=== PATIENT | male | born 1980 | race Caucasian/White ===

== ENCOUNTER 2018-09-20 17:45 | Emergency (ER) | payer SELFPAY ==
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
--- NOTE | 2018-09-20 18:10 | NUR ---
PATIENT SITTING UP ON BED. PATIENT AWAKE AND ALERT. PATIENT VERBALLY RESPONSIVE AT TIMES, BUT IS A POOR HISTORIAN. PATIENT ANSWERS UNAPPROPRIATELY WHEN ASKED QUESTIONS. PATIENT APPEARS TO BE VERY AGGRESSIVE AND CUSSING AT NURSES AND [facility] DEPUTIES. PER [facility] DEPUTIES, PATIENT BROUGHT IN FOR BILATERAL FOOT PAIN AND INTOXICATION OF UNKNOWN SUBSTANCE. BILATERAL FEET NOTED WITH NO REDNESS, SWELLING, BRUISING, OR DEFORMITIES. REST AND RELAXATION ENCOURAGED. MD ORDERS NOTED AND TO BE CARRIED OUT. Addendum: 09/20/18 at 1928 by SDEDOJ PATIENT IN HANDCUFFS.
--- NOTE | 2018-09-20 18:10 | NUR ---
Placed in room 6. Placed on proctologist and pulse oximeter. PATIENT UNCOOPERATIVE AND UNABLE TO GET A BLOOD PRESSURE AT THIS TIME. PT'S HEART RATE = 117BPM AND O2 SATURATION = 96% [facility] AT BEDSIDE.
--- NOTE | 2018-09-20 18:12 | NUR ---
ER Dr. FRAUSTO at bedside examining patient.
[2018-09-20] MEDS ORDERED: NACL 0.9% 1,000 ML IV ONE (18:15)
[2018-09-20] MEDS ORDERED: HALOPERIDOL LACTATE 5 MG/ML VIAL IM ONE (18:15)
[2018-09-20] MEDS ORDERED: LORazepam 2 MG/ML VIAL (FOR ER USE) IM ONE (18:15)
--- NOTE | 2018-09-20 18:15 | NUR ---
PT SCREAMING LOUDLY AND CUSSING, PT HAS SPIT MASK ON FROM FINISH MACHINE TENDER. PT UNCOOPERATIVE WITH PT CARE. MANY FINISH MACHINE TENDER AT BEDSIDE.
[2018-09-20 18:30] LABS: BASOPHILS # (AUTO) 0.1 K/uL (0.0-0.2); BASOPHILS % (AUTO) 0.7 % (0.0-2.0); EOSINOPHILS # (AUTO) 0.6 K/uL (0.0-0.4); HEMATOCRIT 48.7 % (36-54); HEMOGLOBIN 16.2 g/dL (14.0-18.0); LYMPHOCYTES # (AUTO) 3.4 K/uL (1.0-5.5); LYMPHOCYTES % (AUTO) 29.5 % (20.5-51.5); MEAN CORPUSCULAR HEMOGLOBIN 31 pg (27-31); MEAN CORPUSCULAR HGB CONC 33 % (32-36); MEAN CORPUSCULAR VOLUME 92 fL (79.0-98.0); MONOCYTES # (AUTO) 0.9 K/uL (0.0-1.0); MONOCYTES % (AUTO) 7.7 % (1.7-9.3); NEUTROPHILS # (AUTO) 6.6 K/uL (1.8-7.7); NEUTROPHILS % (AUTO) 57.1 % (40.0-70.0); PLATELET COUNT (AUTO) 287 K/uL (130-430); RED CELL DISTRIBUTION WIDTH 13.3 % (9.0-15.0); WHITE BLOOD COUNT (AUTO) 11.7 K/uL (4.8-10.8)
[2018-09-20] MEDS ORDERED: DIPHENHYDRAMINE INJ 50 MG/ML VIAL IM ONE (18:30)
--- NOTE | 2018-09-20 18:40 | NUR ---
ATIVAN, HALDOL, AND BENADRYL ADMINISTERED PER MD ORDERS. TOLERATED WELL. PLEASE SEE EMAR FOR DETAILS.
--- NOTE | 2018-09-20 18:50 | NUR ---
UNABLE TO CARRY OUT ECG DUE PT UNCOOPERATIVE AT THIS TIME. DR. FRAUSTO MADE AWARE.
[2018-09-20 18:52] LABS: CALCIUM 8.8 mg/dL (8.4-11.0); CREATININE 1.21 mg/dL (0.55-1.30); POTASSIUM 3.9 mmol/L (3.5-5.1)
[2018-09-20 18:56] LABS: ALBUMIN 3.8 g/dL (3.4-4.8); TOTAL BILIRUBIN 0.5 mg/dL (0.0-1.0)
--- NOTE | 2018-09-20 19:00 | NUR ---
ATTEMPTED TO INSERT PERIPHERAL IV ACCCESS. UNSUCCESSFUL DUE TO PATIENT BEING UNCOOPERATIVE. [facility] DEPUTIES x2 AT BEDSIDE.
--- NOTE | 2018-09-20 19:05 | NUR ---
REPORT GIVEN AND CARE TRANSFERRE TO HOPE ADHIKARI.
--- NOTE | 2018-09-20 20:10 | NUR ---
Pt is resting in wheelchair sedative medication has taken effect. Pt is no longer screaming or resisting treatment at this time. Will continue to monitor
--- NOTE | 2018-09-20 21:09 | NUR ---
Patient given written and verbal discharge instructions and verbalizes understanding. ER MD discussed with patient the results and treatment provided. Patient in stable condition. ID arm band removed. Patient educated on pain management and to follow up with PMD. Pain Scale 0/10. Opportunity for questions provided and answered. Medication side effect fact sheet provided.
--- NOTE | 2018-09-20 21:14 | NUR ---
Pt has been discharged KENJI informed me they will waiting for a inventory control supervisor for transport [facility]
[2018-09-20 21:38] VITALS: BP_SYST 158
== END 2018-09-20 21:14 | disposition home or self-care (01) ==
LOC: SED 17:45
DX: R41.82 Altered mental status, unspecified (principal); F10.129 Alcohol abuse with intoxication, unspecified; M79.671 Pain in right foot; M79.672 Pain in left foot; Y90.8 Blood alcohol level of 240 mg/100 ml or more; Y04.0XXA Assault by unarmed brawl or fight, initial encounter; Y93.89 Activity, other specified; Y92.89 Other specified places as the place of occurrence of the external cause; Y99.8 Other external cause status
CPT/HCPCS: 36415; 80048; 80053; 85025; 93005; 96372; 99284; G0482; J1200; J1630; J2060; J7030

== ENCOUNTER 2019-02-08 12:39 | Emergency (ER) | payer MEDICAID ==
[~2019-02-08] VITALS: Ht 190.5 cm; Wt 113.4 kg
[2019-02-08 12:47] VITALS: BP_SYST 135
--- NOTE | 2019-02-08 12:50 | NUR ---
Patient to ER bed 5 to gown for evaluation. Side rails up.
[2019-02-08] MEDS ORDERED: OLAN5TAB3 PO (12:55)
[2019-02-08] MEDS ORDERED: BUSP10TA3 PO (12:55)
[2019-02-08] MEDS ORDERED: ESCI20TA PO (12:55)
[2019-02-08] MEDS ORDERED: QUET50TA PO (12:55)
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
--- NOTE | 2019-02-08 13:05 | NUR ---
PATIENT BEING WANDED BY SECURITY.
--- NOTE | 2019-02-08 13:10 | NUR ---
Dr Bone at bedside examining patient
[2019-02-08 13:27] LABS: BASOPHILS # (AUTO) 0.1 K/uL (0.0-0.2); BASOPHILS % (AUTO) 1.3 % (0.0-2.0); EOSINOPHILS # (AUTO) 0.2 K/uL (0.0-0.4); HEMOGLOBIN 14.9 g/dL (14.0-18.0); LYMPHOCYTES # (AUTO) 2.1 K/uL (1.0-5.5); LYMPHOCYTES % (AUTO) 28.2 % (20.5-51.5); MEAN CORPUSCULAR HEMOGLOBIN 31 pg (27-31); MEAN CORPUSCULAR HGB CONC 34 % (32-36); MEAN CORPUSCULAR VOLUME 92 fL (79.0-98.0); MONOCYTES # (AUTO) 0.8 K/uL (0.0-1.0); MONOCYTES % (AUTO) 10.9 % (1.7-9.3); NEUTROPHILS # (AUTO) 4.1 K/uL (1.8-7.7); NEUTROPHILS % (AUTO) 56.6 % (40.0-70.0); PLATELET COUNT (AUTO) 257 K/uL (130-430); RED BLOOD CELL COUNT(AUTO) 4.79 MIL/uL (4.2-6.2); RED CELL DISTRIBUTION WIDTH 13.8 % (9.0-15.0); WHITE BLOOD COUNT (AUTO) 7.3 K/uL (4.8-10.8)
--- NOTE | 2019-02-08 13:30 | NUR ---
Patient resting and sleeping in bed, arousable to voice, no signs or symptoms of acute distress noted. Patient denies any SOB or pain. Skin warm/pink/dry and respirations even and unlabored.
[2019-02-08 13:32] LABS: ANION GAP 7 (5-15); CALCIUM 8.1 mg/dL (8.4-11.0); CHLORIDE 107 mmol/L (98-107); CREATININE 0.94 mg/dL (0.55-1.30); GLUCOSE 117 mg/dL (70-99); POTASSIUM 3.9 mmol/L (3.5-5.1); SODIUM SERUM 140 mmol/L (136-145); UREA NITROGEN, BLOOD 10 mg/dL (8-21)
[2019-02-08 13:38] LABS: GFR AFRICAN AMERICAN 116 mL/min (>90)
[2019-02-08 13:40] LABS: ALANINE AMINOTRANSFERASE 182 U/L (12-78); ALBUMIN 2.9 g/dL (3.4-4.8); ASPARTATE AMINOTRANSFERASE 44 U/L (10-37); TOTAL BILIRUBIN 0.3 mg/dL (0.0-1.0)
[2019-02-08 13:45] LABS: ACETAMINOPHEN < 1 ug/mL (1-30); ALCOHOL, BLOOD < 3 mg/dL (<10)
--- NOTE | 2019-02-08 14:35 | NUR ---
Nancy parker in [facility] - 02/08/19 at 1457 by APRYL ASAD IVEY AT BEDSIDE.
--- NOTE | 2019-02-08 14:35 | NUR ---
NEW SITTIER AT BEDSIDE UPDATED ON PATIENT.
[2019-02-08 14:57] LABS: BILIRUBIN,URINE NEGATIVE (NEGATIVE); BLOOD, URINE 2+ (NEGATIVE); CLARITY/URINE CLEAR (CLEAR); COLOR,URINE YELLOW (YELLOW); GLUCOSE,URINE NEGATIVE (NEGATIVE); KETONES,URINE NEGATIVE (NEGATIVE); LEUKOCYTE ESTERASE ,URINE NEGATIVE (NEGATIVE); NITRITE, URINE NEGATIVE (NEGATIVE); PH,URINE 5.5 (5.0-8.0); PROTEIN URINE NEGATIVE (NEGATIVE); UROBILINOGEN,URINE 0.2 (0.2-1.0)
--- NOTE | 2019-02-08 15:24 | NUR ---
PATIENT RESTING IN BED WITH NO SIGNS OF DISTRESS. VITALS WERE TAKEN. SITTER AT BEDSIDE.
[2019-02-08 15:31] LABS: BACTERIA,URINE FEW /HPF (None Seen); WBC,URINE 0-3 /HPF (0-3)
[2019-02-08 15:35] LABS: CANNABINOID, URINE POSITIVE (NEG <=50); METHAMPHETAMINES SCREEN,URINE POSITIVE (NEG <=500); URINE AMPHETAMINE POSITIVE (NEG <=500)
[2019-02-08 15:36] LABS: BARBITURATE, URINE NEGATIVE (NEG <=200); BENZODIAZEPINE, URINE POSITIVE (NEG <=150); COCAINE, URINE NEGATIVE (NEG <=150); OPIATE, URINE NEGATIVE (NEG <=100); PHENCYCLIDINE SCREEN,URINE NEGATIVE (NEG <=25); UR TRICYCLIC ANTIDEPRESSANTS NEGATIVE (NEG <=300); URINE METHADONE NEGATIVE (NEG <=200); URINE OXYCODONE SCREEN NEGATIVE (NEG <=100); URINE PROPOXYPHENE SCREEN NEGATIVE (NEG <=300)
--- NOTE | 2019-02-08 17:18 | NUR ---
PATIENT COMPLAINING OF PAIN. DR TROY AWARE.
[2019-02-08] MEDS ORDERED: KETOROLAC TROMETHAMINE 60 MG/2 ML VIAL IM ONE (17:30)
--- NOTE | 2019-02-08 17:48 | NUR ---
PATIENT EATING DINNER IN BED WITH NO SIGNS OF DISTRESS. SITTER AT BEDSIDE.
--- NOTE | 2019-02-08 19:09 | NUR ---
ENDORSED CARE TO HOPE ELENA.
--- NOTE | 2019-02-08 19:18 | NUR ---
Schleicher of care received at this time, pt sleeping at this time, no s/s of distress, VSS.
--- NOTE | 2019-02-08 19:53 | NUR ---
Dr Villalobos at bedside examining patient
--- NOTE | 2019-02-08 19:55 | NUR ---
Pt responding to Dr Villalobos , pt states he has been suicidal , last time he used meth was 5 days ago.
--- NOTE | 2019-02-08 20:35 | NUR ---
Pt resting at this time, no s/s of distress, VSS.
--- NOTE | 2019-02-08 22:07 | NUR ---
Asked patient if he needs anything at this time , Pt states "I am ok, I do not need anything at this time" will continue to monitor.
--- NOTE | 2019-02-08 22:30 | NUR ---
Pt sleeping at this time, no s/s of distress , VSS.
--- NOTE | 2019-02-08 22:55 | NUR ---
Pt on stable condition, report given to Reema ARNETT.
--- NOTE | 2019-02-08 23:00 | NUR ---
Patient sleeping on left side at this time. No acute respiratory distress noted. Will continue to monitor.
--- NOTE | 2019-02-08 23:30 | NUR ---
Patient sleeping on left side at this time. No acute respiratory distress noted. Will continue to monitor.
--- NOTE | 2019-02-08 23:59 | NUR ---
Patient sleeping on left side at this time. Rise and fall of chest noted. Will continue to monitor.
--- NOTE | 2019-02-09 00:30 | NUR ---
Patient sleeping on supine position at this time. No acute respiratory distress noted. Symmetrical rise and fall of chest noted. Will continue to monitor.
--- NOTE | 2019-02-09 00:56 | NUR ---
Patient sleeping on supine position at this time. No acute respiratory distress noted. Symmetrical rise and fall of chest noted. Will continue to monitor.
--- NOTE | 2019-02-09 01:02 | NUR ---
PET team at bedside for evaluation.
--- NOTE | 2019-02-09 01:30 | NUR ---
Patient sleeping on left side at this time. No acute distress noted.
--- NOTE | 2019-02-09 01:50 | NUR ---
Pt placed on 5150 hold per PET team. Pt was evaluated PET team. Paperwork placed in chart.
--- NOTE | 2019-02-09 02:03 | NUR ---
security at bedside for wanding.
--- NOTE | 2019-02-09 02:30 | NUR ---
Patient sleeping in supine position. No acute distress noted. Symmetrical rise and fall of chest noted. Will continue to monitor.
--- NOTE | 2019-02-09 02:45 | NUR ---
Attempted to get updated vital signs and blood pressure on patient at this time. Patient refused. Able to obtain heart rate, oxygen saturation, and respirations. Will continue to monitor.
--- NOTE | 2019-02-09 03:11 | NUR ---
Pt's packet faxed to the following [facility] contracted LPS facilities: [facility] Awaiting reply on packet evaluation for placement.
--- NOTE | 2019-02-09 03:30 | NUR ---
Patient sleeping on right side. No acute distress noted at this time. Report given to HOPE Talamantes for continuity of care.
--- NOTE | 2019-02-09 03:45 | NUR ---
Pt in bed with eyes closed resting comfortably. No signs of acute distress or discomfort noted. Will cont to monitor pt.
--- NOTE | 2019-02-09 04:00 | NUR ---
Pt resting comforatbly on right side. Visual chest rise and fall noted. No signs of acute distress or discomfort noted. Will cont to monitor.
--- NOTE | 2019-02-09 04:15 | NUR ---
Pt sleeping on left side at this time. No signs of acute distress or discomfort noted. Will cont to monitor.
--- NOTE | 2019-02-09 04:30 | NUR ---
Pt in bed with eyes closed resting comfortably. No signs of acute distress or discomfort noted. Will cont to monitor pt.
--- NOTE | 2019-02-09 04:45 | NUR ---
Pt in bed resting comfortably. No signs of acute distress or discomfort noted. Will cont to monitor.
--- NOTE | 2019-02-09 05:00 | NUR ---
Pt sleeping on left side at this time. Visual chest rise and fall noted. No signs of acute distress or discomfort noted. Will cont to monitor.
--- NOTE | 2019-02-09 05:15 | NUR ---
Pt in bed with eyes closed resting comfortably. No signs of acute distress or discomfort noted. Will cont to monitor pt.
--- NOTE | 2019-02-09 05:30 | NUR ---
Pt in bed with eyes closed resting comfortably. No signs of acute distress or discomfort noted. Will cont to monitor pt.
--- NOTE | 2019-02-09 05:45 | NUR ---
Pt sleeping supine at this time. Symetrical chest rise and fall noted. No signs of acute distress or discomfort noted. Will cont to monitor.
--- NOTE | 2019-02-09 06:00 | NUR ---
Pt in bed with eyes closed resting comfortably. No signs of acute distress or discomfort noted. Will cont to monitor pt.
--- NOTE | 2019-02-09 06:00 | NUR ---
PATIENT LAYING IN BED WITH EYES CLOSED RESTING REPORT GIVEN BY BELA QUINTANILLA RN FOR SHIFT CHANGE ROOM CHECK DONE ALL ITEMS HAVE BEEN REMOVED WHICH CAN CAUSE HARM WITH CHART Q15 ON BEHAVIORAL HEALTH SPECIAL PRECAUTIONS/ OBSERVATION RECORD
--- NOTE | 2019-02-09 06:36 | NUR ---
Spoke to a ict sales representative from [facility] at this time. Answered all the representatives questions. Candy Butcher states he will call back.
--- NOTE | 2019-02-09 06:40 | NUR ---
[facility] rep called back. States the pt has been accepted by [facility] in [place], admiting doctor is Dr. Ignacio. Building Analyst/Supervisor states that report should be called at 0730 to charge nurse at [facility]. Number to call for report is . Will endorse to oncoming shift.
--- NOTE | 2019-02-09 06:52 | NUR ---
Pt refused to sign transfer acknowledgement form. DORA CONDE made aware. Pt is on a 5150 hold.
--- NOTE | 2019-02-09 06:53 | NUR ---
Charge nurse HOPE Magana and myself signed transfer acknowledgement form.
--- NOTE | 2019-02-09 07:00 | NUR ---
PATIENT HITTING TIM SHAKING THE BED UPSET HE CAN NOT TAKE A SHOWER STATES HE DOES NOT WANT TO GO TO FACILITY PATIENT WENT TO RESTROOM 2 WASH CLOTHS WERE GIVEN PATIENT IN RESTROOM MALE NURSE VAZQUEZ OUTSIDE DOOR WITH PATIENT PATIENT IN RESTROOM WASHING UP SPILLING WATER ON THE FLOOR
--- NOTE | 2019-02-09 07:03 | NUR ---
Report given to HOPE Pena using SBAR format and pt care was endorsed.
--- NOTE | 2019-02-09 07:05 | NUR ---
Report received from Albin ENCARNACION shift nurse. Pt is on a 5150 hold initiated on 02/09/19 @0150. Pt is currently suicidal and has an active plan. 1:1 sitter is at the bedside. Currently bending transfer to [facility] accepted MD is Dr. Ignacio. Will continue to closely monitor.
--- NOTE | 2019-02-09 07:15 | NUR ---
Breakfast tray ordered for the pt.
--- NOTE | 2019-02-09 07:22 | NUR ---
PATIENT THREW TRAY ON THE FLOOR RN AWARE
--- NOTE | 2019-02-09 07:25 | NUR ---
PATIENT CALLING REVENUE CYCLE ADMINISTRATOR NAMES STATES WHY ARE YOU SO FAT FUCKING FAT BITCH, PATIENT PACING USING PROFANITY TOWARDS STAFF PATIENTS WALKING TO SIDE ER DOOR TRY ING TO GO OUT SIDE RN VAZQUEZ REDIRECTS PATIENT BACK TO ROOM
--- NOTE | 2019-02-09 07:35 | NUR ---
Security at the bedside wanding the pt.
--- NOTE | 2019-02-09 07:35 | NUR ---
Nancy parker in ED - 02/09/19 at 0740 by MERISSA Securoit at the bedside wanding the pt.
--- NOTE | 2019-02-09 07:37 | NUR ---
Security was at the bedside when pt left the ER. [facility]'s Department called.
--- NOTE | 2019-02-09 07:38 | NUR ---
Pt returned to the ER. Escorted by security. 1:1 sitter and security at the bedside.
--- NOTE | 2019-02-09 07:39 | NUR ---
PATIENT ASKED FOR TOWEL PATIENT WENT TO DIRTY LIEN BIN AND TOOK OUT USE DIRTY LIEN TO USE TOWEL AND WENT IN RESTROOM THEN THREW DIRTY LIEN ON FLOOR AND TRIED TO GO OUT THREW SIDE ER DOOR SECURITY REDIRECTED PATIENT BACK TO ROOM AND REMAINED AT BEDSIDE
--- NOTE | 2019-02-09 07:50 | NUR ---
Medicated the pt with Ativan 2mg PO per MD order. Will reassess.
[2019-02-09] MEDS ORDERED: LORazepam 1 MG TABLET PO ONE (08:00)
--- NOTE | 2019-02-09 08:00 | NUR ---
PATIENT LAYING BED RESTING WITH EYES CLOSED RN CAME IN AND GAVE PATIENT MEDS Addendum: 02/09/19 at 0803 by Essie Manrique CNA SECURITY STILL AT BEDSIDE
--- NOTE | 2019-02-09 08:00 | NUR ---
pt is currently sleeping. Security and 1:1 sitter at the bedside.
--- NOTE | 2019-02-09 08:15 | NUR ---
pt is sleeping in bed. 1:1 sitter at the beside.
--- NOTE | 2019-02-09 08:30 | NUR ---
pt continues to sleep in bed. Eyes are closed.
--- NOTE | 2019-02-09 08:45 | NUR ---
pt continues to sleep in bed, eyes are closed. 1:1 sitter at the bedside.
--- NOTE | 2019-02-09 09:00 | NUR ---
pt is sleeping in bed. 1:1 sitter at the bedside.
--- NOTE | 2019-02-09 09:05 | NUR ---
PATIENT LAYING IN BED RESTING WITH EYES CLOSED CALM AND QUIET
--- NOTE | 2019-02-09 09:15 | NUR ---
pt is currently sleeping. Eyes are closed.
--- NOTE | 2019-02-09 09:30 | NUR ---
pt is sleeping in bed. 1:1 sitter at the bedside.
--- NOTE | 2019-02-09 09:59 | NUR ---
Report given to Jeannette from [facility]. Pt will bed accepted under the care of Dr. Ignacio.
--- NOTE | 2019-02-09 10:00 | NUR ---
PATIENT LAYING IN BED CALM AND QUIET WITH EYES CLOSED RESTING
--- NOTE | 2019-02-09 10:15 | NUR ---
pt is sleeping in bed. Eyes are closed.
--- NOTE | 2019-02-09 10:24 | NUR ---
PATIENT SITTING AT BEDSIDE SPEAKING WITH LAY OUT INSPECTOR AND AMBULANCE PATIENT IS ON A 5150 HOLD AND REFUSING TO GO TO FACULTY PATIENT IS AGITATED AND CUSSING AT STAFF AND AMBULANCE DRIVERS SECURITY IS AT BEDSIDE WITH SITTER
--- NOTE | 2019-02-09 10:29 | NUR ---
PATIENT IS BEING TRANSFERRED RN GAVE REPORT
[2019-02-09 10:32] VITALS: BP_SYST 126
--- NOTE | 2019-02-09 10:33 | NUR ---
Patient to be transferred to [facility]. Is being transferred to a psych facility. Receiving facility has accepting physician and available space. ER physician has signed transfer form. Patient or responsible republican has agreed to transfer and signed form. Patient belongings inventoried and will be sent with patient. Copy of nursing notes, lab reports, EKG, Physicians Orders and X-rays to be sent with patient. Report called to Jeannette at receiving facility. Receiving physician is Dr. Ignacio. [facility] service has been called for transfer.
== END 2019-02-09 10:32 ==
LOC: SED 12:39
DX: F31.9 Bipolar disorder, unspecified (principal); F20.9 Schizophrenia, unspecified; R45.851 Suicidal ideations; F17.210 Nicotine dependence, cigarettes, uncomplicated; F11.90 Opioid use, unspecified, uncomplicated; F12.90 Cannabis use, unspecified, uncomplicated; F15.90 Other stimulant use, unspecified, uncomplicated; Z79.899 Other long term (current) drug therapy
CPT/HCPCS: 36415; 80053; 80307; 81000; 84484; 85025; 96372; 99285; G0480; G0481; G0482; J1885